=== PATIENT | male | born 1980 | race African-American/Black ===

== ENCOUNTER 2023-04-10 06:53 | Emergency (ER) | payer BC, SELFPAY ==
--- NOTE | 2023-04-10 07:29 | ED.GENADULT ---
HPI - General Adult General Chief complaint: Back Pain/Injury Stated complaint: Back Pain Time Seen by Provider: 04/10/23 07:28 Source: patient Mode of arrival: ambulatory Limitations: no limitations History of Present Illness HPI narrative: 42 year old male with complaints of 2 weeks of lower back. Patient reports having spent a day raking his yard and pulling weeds and when he woke up the next morning he noticed a twinge in his lower back. The pain has been constant at a 7/10 since onset. Patient has trialled ice, lidocaine patches, and ibuprofen without relief. He endorses pain localized to the L3-S1 region bilaterally that is worse with sitting or standing for a long period of time. Patient denies changes in bladder or bowel control, paresthesias into the legs or feet and weakness. Onset (ago): week(s) (2) Location: back Severity: mild Severity scale (1-10): 3 Relieving factors: none Exacerbating factors: none Associated symptoms: denies other symptoms Treatments prior to arrival: none Related Data Previous Rx's Medication Instructions Recorded cyclobenzaprine 5 mg tablet 5 mg PO TID PRN muscle spasm 7 04/10/23 days #21 tabs Allergies Allergy/AdvReac Type Severity Reaction Status Date / Time No Known Allergies Allergy Unverified 02/26/20 17:40 Review of Systems Constitutional: Constitutional: Denies weakness Eyes: Eyes: Reports no additional eye complaints, Denies blurry vision, Denies change in vision, Denies diplopia, Denies eye discharge, Denies loss of vision and Denies eye pain ENT: Denies dizziness Cardiovascular: Cardiovascular: Reports no additional cardiovascular complaints, Denies chest pain, Denies lightheadedness, Denies Loss of Consciousness and Denies dyspnea Respiratory: Respiratory: Reports no additional respiratory complaints and Denies dyspnea Gastrointestinal: Gastrointestinal: Reports no additional gastrointestinal complaints, Denies abdominal pain, Denies melena, Denies hematochezia, Denies change in bowel habits and Denies change in stool character Genitourinary: Genitourinary: Reports no additional male genitourinary complaints, Denies hematuria, Denies oliguria, Denies difficulty urinating, Denies dysuria, Denies urinary frequency, Denies urinary hesitancy, Denies urinary incontinence and Denies urinary urgency Musculoskeletal: Musculoskeletal: Reports back pain, Denies numbness, Denies radiating pain into limb, Reports stiffness and Denies tingling Integumentary/Breasts: Skin/Breast: Denies swelling, Denies erythema, Denies rash and Denies unusual bruising Neurologic: Denies dizziness, Denies loss of vision, Denies numbness, Denies tingling and Denies weakness Psychiatric: Psychiatric: Reports no additional psychiatric complaints Endocrine: Endocrine: Reports no additional endocrine complaints Hematologic/Lymphatic: Hematologic/Lymphatic: Reports no additional hematologic/lymphatic complaints Allergic/Immunologic: Allergic/Immunologic: Reports no additional allergic/immunologic complaints [facility] Past Medical History Attestation statement: The following information was validated with the patient. Source: old records reviewed and nursing notes reviewed Social History Social History Alcohol intake: current Alcohol intake frequency: a few times a month Smoked in Last 30 Days: No Use of substances other than those prescribed or required for medical reasons: Yes Substance Use Type: Marijuana Advance Directives: No Physical Exam ED Vital Signs: Vital Signs - 24 hr 04/10/23 07:30 Pulse Rate 93 Respiratory Rate 18 Blood Pressure 153/105 H Pulse Oximetry 98 Oxygen Delivery Method Room Air BMI result Body Mass Index 29.4 Const General: cooperative and healthy appearing Nutritional Appearance: well nourished Orientation/consciousness: patient oriented x3 Limitations: no limitations HENMT Head: Yes normal to inspection and Yes atraumatic Ears: hearing grossly normal bilaterally and external ears normal General nose exam: Normal external nose present, no nasal discharge noted and no epistaxis Face and sinus: Yes normal facial exam, No abrasion and No laceration Mouth: Normal oral and palatal mucosa present, no drooling and no muffled voice Eyes General: appearance normal, both eyes and all related structures Periorbital: periorbital findings normal Eyelids: Yes eyelids normal Conjunctivae: conjunctivae normal Pupils: Equal, round and reactive pupils present EOM: EOMs intact bilaterally Neck Neck: Yes normal visual inspection, Yes full ROM and Yes no lymphadenopathy Chest Chest palpation & inspection: normal inspection of the chest Resp Effort & Inspection: normal respiratory effort and able to speak in complete sentences Auscultation: clear to auscultation bilaterally Cardio Rate: regular rate Rhythm: regular rhythm GI Inspection: Yes normal to inspection Back/Spine/Pelvis Back: No erythema, No warmth, No ecchymosis and back tenderness Thoracic/Lumbar Spine: thoracic and lumbar spine normal to inspection, straight leg raise negative bilaterally, pain with thoraco-lumbar ROM and paraspinal muscle tenderness Neuro General: patient oriented x3 and moves all extremities Cranial nerves: Yes Equal, round and reactive pupils present Cognition (Neuro): normal cognition Motor exam (neuro): 5/5 motor strength present throughout Sensory Exam: Normal double simultaneous stimulation for sensation Coordination: vyacol-eg-bwxk test normal Extrem General: Yes normal to inspection, Yes full ROM and Yes capillary refill normal Psych Appearance: grossly normal Mental Status: mental status grossly normal Affect: normal affect Attitude: cooperative Thought process: Normal thought process present Thought content: Normal thought content present Insight: Good insight present (Psych) Medications Administered Discontinued Medications Generic Name Dose Route Start Last Admin Trade Name Yvan PRN Reason Stop Dose Admin Cyclobenzaprine HCl 5 mg 04/10/23 07:41 04/10/23 08:02 Cyclobenzaprine Hcl 5 Mg Tablet PO 04/10/23 07:42 5 mg ONCE ONE Administration Ketorolac Tromethamine 15 mg 04/10/23 07:41 04/10/23 08:02 Ketorolac Tromethamine 15 Mg/Ml Vial IM 04/10/23 07:42 15 mg ONCE ONE Administration Medical Decision Making Medical Decision Making MDM Narrative: Patient is a 42 year old assigned male at with no reported medical history presenting to the emergency department today with low back pain. Patient's physical exam was as noted in the physical exam portion of this note. I explained my physical exam findings to the patient. I answered all questions asked by the patient. Patient received IM Toradol and PO Flexeril which he stated helped his symptoms significantly. I stressed the importance of the patient taking his medication as prescribed. I stressed the importance of the patient following up with his primary care provider. I stressed the importance of the patient returning to the emergency department immediately if his symptoms were to worsen or if he were to develop any dizziness, shortness of breath, difficulty breathing, chest pain, blurry vision, loss of vision, nausea, vomiting, abdominal pain, fever, chills, back pain, or any other complaints. Patient verbalized agreement and understanding with this treatment plan and discharge. Differential Diagnosis Differential Diagnoses: The differential diagnosis associated with the presentation includes low back pain lumbar strain Tests considered The following testing was considered but not selected: Imaging was considered (XR, MRI, CT) however at this time, it is not indiciated. Prescription Management I considered prescription management with: Pain Medication (patient prescribed pain medication.) Discharge Plan Discharge Clinical Impression: Strain of lumbar region Patient Disposition: Home, Self-Care Instructions: Back Pain (ED) Additional Instructions: Follow up with your primary care provider. Return to the emergency department immediately if your symptoms worsen or if you develop any dizziness, shortness of breath, difficulty breathing, chest pain, blurry vision, loss of vision, nausea, vomiting, abdominal pain, fever, chills, back pain, or any other complaints. Prescriptions: New cyclobenzaprine 5 mg tablet 5 mg PO TID PRN (Reason: muscle spasm) 7 Days Qty: 21 0RF Referrals: [facility] [place] Family Medicine [Provider Group] (Call to establish and follow up with a primary care provider. If you already have a primary care provider, please follow up with them.) [facility] [place] Primary Care, Alo [Provider Group] (Call to establish and follow up with a primary care provider. If you already have a primary care provider, please follow up with them.) [facility] [place] Primary Care,Bonnie [Provider Group] (Call to establish and follow up with a primary care provider. If you already have a primary care provider, please follow up with them.) Stand Alone Forms: Work/School Release Interventions: ED Discharge Assessment Last Done: 04/10/23 08:05 Discharge Date/Time: 04/10/23 08:06 Print Language: Danish
[2023-04-10 07:30] VITALS: BP 153/105; PULSE 93; RESP 18; O2SAT 98; BMI 29.4
--- NOTE | 2023-04-10 07:35 | PC.NURSE ---
Patient reports was doing yard work two weeks ago and woke up the next morning with a sore and stiff back. Patient reports 7/10 pain that is mostly in the lower right side of back. Denies numbness or tingling in feet or legs. Reports pain with bending, turning, and twisting.
[2023-04-10] MEDS: Ketorolac Tromethamine 15 MG/ML VIAL IM (08:02)
[2023-04-10] MEDS: Cyclobenzaprine HCl 5 MG TABLET PO (08:02)
--- NOTE | 2023-04-10 08:06 | PC.NURSE ---
Discahrge plan reviewed with patient who verbalized understanding
== END 2023-04-10 08:06 | disposition home or self-care (01) ==
PROVIDERS: Emergency Provider Emergency Medicine
DX: S39.012A Strain of muscle, fascia and tendon of lower back, initial encounter (principal); X50.9XXA Other and unspecified overexertion or strenuous movements or postures, initial encounter; Y93.H1 Activity, digging, shoveling and raking; Y92.017 Garden or yard in single-family (private) house as the place of occurrence of the external cause; Y99.9 Unspecified external cause status
CPT/HCPCS: 96372; 99284; J1885

== ENCOUNTER 2023-10-10 16:04 | Outpatient (AMB) | payer BC, SELFPAY ==
--- NOTE | 2023-10-10 16:14 | A.OFFPC_ITS ---
Vital Signs 10/10/23 16:15 10/10/23 17:28 Height 5 ft 10 in Weight 200 lb BMI 28.7 BP 170/120 H 150/110 H Blood Pressure Location Lt brachial Position Sitting Pulse 86 Pulse Source Pulse Oximeter Pulse Oximetry (%) 98 Oxygen Delivery Method Room Air Intake Visit Reasons: NPV/ requesting phy Intake Note: Patient here to establish care and have PE Allergies No Known Allergies Allergy (Unverified 10/10/23 16:16) Tobacco use date assessed: 10/10/23 Dental Screening Dental Screen Date: 10/10/23 Did you have a dental visit in the last 12 months?: No Did you have a dental problem in the last 6 months where you did not have access to dental care?: No Was dental information given to patient?: No HPI NPV/ requesting phy HPI Details New pt is here for a PE. Will order labs. Pt's blood pressure is elevated today. He reports having elevated BP in the past as well. Will start losartan-hydrochlorothiazide 50-12.5mg. Will have pt monitor his blood pressure at home and record readings. Denies chest pain, shortness of breath, dizziness, and blurred vision. He does report headaches, especially after a hard work out, ? HTN related. He will drop off reading from home in approx 3-5 weeks. encouraged getting lab work drawn at least 2 weeks after starting medication. Pt is interested in a vasectomy. Will refer to urology. [facility] Family History (Updated 10/10/23 @ 16:18 by FARAZ Carpenter) Other Family history of mental disorder Family history of substance abuse Social History Housing: House Alcohol intake: current Alcohol intake frequency: a few times a month Patient Tobacco Use Status: Former Tobacco user e-Cigarette/Vaping Use: Never Used Substance Use Type: Marijuana service: No Current occupational status: employed Current occupational exposures/hazards: No Cognitive needs: No Hearing needs: No Vision needs: Yes Questionnaire AUDIT C Alcohol Use Questionnaire (AUDIT-C) 1. How often do you have a drink containing alcohol?: 4 or more times a week 2. How many drinks containing alcohol do you have on a typical day when you are drinking?: 1 or 2 3. How often do you have six or more drinks on one occasion?: Never Total Score: 4 Score Reviewed/Action Taken: No Review of Systems Const Denies chills and Denies fever(s) Eyes Denies blurry vision ENT Denies vertigo, Denies dizziness and Denies sore throat Card Denies chest pain at rest, Denies chest pain with activity, Denies diaphoresis, Denies dyspnea and Denies dyspnea on exertion Resp Denies cough, Denies dyspnea, Denies dyspnea on exertion and Denies wheezing GI Denies abdominal pain, Denies melena, Denies hematochezia, Denies constipation, Denies diarrhea and Denies loose stools Denies hematuria Musc Denies numbness and Denies tingling Skin/Breast Denies lesions Neuro Denies vertigo, Denies dizziness, Denies numbness and Denies tingling Psych Denies anxiety, Denies depression, Denies homicidal ideation, Denies suicidal ideation and Denies other (substance abuse) Aller/Immun Denies wheezing Physical exam (Primary Care) Vital Signs: Last Vital Signs Pulse 86 10/10/23 16:15 BP 150/110 H 10/10/23 17:28 Pulse Ox 98 10/10/23 16:15 Oxygen Delivery Method Room Air 10/10/23 16:15 BMI result Body Mass Index 28.7 Tobacco/Smoking Status: Tobacco use Status Tobacco use date assessed 10/10/23 10/10/23 16:20 Patient Tobacco Use Status Former Tobacco user 10/10/23 16:20 e-Cigarette/Vaping Use Never Used 10/10/23 16:20 Const General: cooperative Nutritional Appearance: well nourished Orientation/consciousness: patient oriented x3 HENMT Head: Yes normal to inspection, Yes normocephalic and Yes atraumatic Ears: TM's normal bilaterally Eyes General: appearance normal, both eyes and all related structures Alignment and Position: alignment normal and position normal Neck Neck: Yes normal visual inspection and Yes no lymphadenopathy Thyroid: Thyroid normal Resp Effort & Inspection: normal respiratory effort Auscultation: clear to auscultation bilaterally Cardio Rate: regular rate Rhythm: regular rhythm Heart sounds: S1 normal heart sound present, S2 normal heart sound present and no murmurs GI Palpation (GI): Soft to palpation and nontender Auscultation: normal bowel sounds Male General Exam: Yes normal external exam Penis: normal penis Scrotum: scrotum normal, testes descended bilaterally and no inguinal hernias Testes: no testicular mass Skin Rashes: no rashes Neuro General: patient oriented x3, moves all extremities, no focal motor deficits and deep tendon reflexes 2+ bilaterally Romberg Test: Negative Psych Appearance: grossly normal Mental Status: mental status grossly normal Speech and movement: Normal speech and movement present Affect: normal affect Attitude: cooperative Thought process: Normal thought process present Thought content: Normal thought content present Insight: Good insight present (Psych) Judgement: Good judgement present (Psych) Assessment and Plan Assessment & Plan (1) Encounter for vasectomy: Code(s): Z30.2 - Encounter for sterilization Plan: Referred to urology (2) Encounter for routine adult physical exam with abnormal findings: Code(s): Z00.01 - Encounter for general adult medical examination with abnormal findings (3) HTN (hypertension): Code(s): I10 - Essential (primary) hypertension Plan: starting losartan-hctz 50mg-12.5. pt will drop off values from home in approx 3-5 weeks, and knows to get labs in the near future. Plan The patient agreed to the use of a medical collector for this encounter. Scribed for MAVERICK Garcia by Camila Poon medical collector, on 10/10/2023 at 16:55 EST. Orders: Referrals Urology Referral Z30.2 - Encounter for sterilization Medications: New losartan-hydrochlorothiazide 50-12.5 mg 1 tab PO DAILY 30 tabs 2RF Discontinued cyclobenzaprine Discontinued Reason: Patient no longer taking 5 mg PO TID 7 days PRN 21 tabs 0RF muscle spasm Coding Level of Care Code New Pt Prev Care 40-64y(55917) Diagnoses Encounter for vasectomy Z30.2 Encounter for routine adult physical exam with abnormal findings Z00.01 HTN (hypertension) I10
[2023-10-10 16:15] VITALS: BP 170/120; PULSE 86; O2SAT 98; BMI 28.7
[2023-10-10 17:28] VITALS: BP 150/110
== END 2023-10-10 17:12 | disposition home or self-care (01) ==
PROVIDERS: Visit Provider Nurse Practitioner Family
DX: Z00.00 Encounter for general adult medical examination without abnormal findings (principal); I10 Essential (primary) hypertension
CPT/HCPCS: 99386